=== PATIENT | male | born 1990 | race American Indian/Alaskan Native ===

== ENCOUNTER 2017-09-08 16:15 | Emergency (ER) | payer MEDICAID ==
[2017-09-08 16:44] VITALS: PULSE 90; RESP 18; TEMP 97.5; O2SAT 98
[2017-09-08] MEDS ORDERED: Albuterol 0.083% Inhal Sol (2.5 mg/3 mL) UD INH STA (17:21)
[2017-09-08] MEDS ORDERED: Albuterol 0.083% Inhal Sol (2.5 mg/3 mL) UD ONE (17:34)
--- NOTE | 2017-09-08 18:48 | ED PDOC ---
HPI: General Adult Time Seen by Provider: 09/08/17 16:39 Chief Complaint (Nursing): Abdominal Pain History Per: Patient Additional Complaint(s): Pt. states for the past 2 days he's had cough, congestion, and diarrhea. Also reports non-radiating, intermittent epigastric crampy abdominal pain present only when trying to have BM. Of note, pt.'s 2 y/o daughter also has same symptoms. Denies fever, hematemesis, vomiting, chest pain, SOB, melena, hematochezia, BRBPR. Past Medical History Reviewed: Historical Data, Nursing Documentation, Vital Signs Vital Signs: Last Vital Signs Temp 97.5 F L 09/08/17 16:40 Pulse 90 09/08/17 16:40 Resp 18 09/08/17 16:40 BP 153/79 H 09/08/17 18:48 Pulse Ox 98 09/08/17 19:40 - Medical History PMH: Asthma, Bronchitis - Family History Family History: States: No Known Family Hx - Home Medications Home Medications: Ambulatory Orders Medication Instructions Recorded Amoxicillin [Amoxil] 500 mg PO TID #30 cap 08/21/14 Famotidine [Pepcid] 20 mg PO Q12H #20 tab 08/21/14 Albuterol HFA [Ventolin HFA 90 1 - 2 puff IH Q4H PRN #1 bottle 02/18/16 mcg/actuation (8 g)] Azithromycin [Zithromax] 250 mg PO DAILY #6 tablet 02/18/16 predniSONE [Prednisone] 40 mg PO DAILY #8 tab 02/18/16 Albuterol Sulfate [Proair Hfa] 1 - 2 puff IH Q6 #1 inh 06/02/16 Dextromethorphan HBr [Cough 15 mg PO BID #20 capsule 06/02/16 Control] predniSONE [predniSONE Tab] 20 mg PO DAILY #8 tab 06/02/16 Albuterol 0.083% [Albuterol 0.083% 2.5 mg IH QID PRN #20 10/11/16 Inhal Caridad (2.5 mg/3 ml) UD] Albuterol HFA [Ventolin HFA 90 1 puff IH BID PRN #2 unit 10/11/16 mcg/actuation (8 g)] Albuterol HFA [Ventolin HFA 90 2 puff IH [id number] PRN #90 puff 09/08/ mcg/actuation (8 g)] - Allergies Allergies/Adverse Reactions: Allergies Allergy/AdvReac Type Severity Reaction Status Date / Time No Known Allergies Allergy Verified 06/02/16 11:15 Review of Systems ROS Statement: Except As Marked, All Systems Reviewed And Found Negative Respiratory: Positive for: Cough Gastrointestinal: Positive for: Abdominal Pain, Diarrhea Physical Exam - Reviewed Nursing Documentation Reviewed: Yes Vital Signs Reviewed: Yes - Physical Exam Appears: Positive for: Well, Non-toxic, No Acute Distress Head Exam: Positive for: ATRAUMATIC, NORMAL INSPECTION, NORMOCEPHALIC Skin: Positive for: Normal Color, Warm. Negative for: Rash Eye Exam: Positive for: EOMI, Normal appearance, PERRL ENT: Positive for: Normal ENT Inspection Neck: Positive for: Normal, Painless ROM Cardiovascular/Chest: Positive for: Regular Rate, Rhythm Respiratory: Positive for: Wheezing (minimal b/l expiratory wheezing). Negative for: Accessory Muscle Use, Crackles, Rales, Rhonchi, Respiratory Distress Gastrointestinal/Abdominal: Positive for: Normal Exam, Soft. Negative for: Tenderness Back: Positive for: Normal Inspection Extremity: Positive for: Normal ROM Neurologic/Psych: Positive for: Alert, Oriented. Negative for: Aphasia, Facial Droop - ECG O2 Sat by Pulse Oximetry: 98 - Radiology X-Ray: Interpreted by Me (CXR) X-Ray Interpretation: No Acute Disease - Progress ED Course And Treament: Repeat temp: 153/79. On re-evaluation, pt. reports good relief of wheezing. Lungs clear b/l. Rapid flu: negative. Disposition - Clinical Impression Clinical Impression: Viral syndrome - Patient ED Disposition Is Patient to be Admitted: No - Disposition Referrals: [facility] [Outside] Disposition: Routine/Home Disposition Time: 19:38 Condition: STABLE Prescriptions: Albuterol HFA [Ventolin HFA 90 mcg/actuation (8 g)] 2 puff IH [id number] PRN #90 puff PRN Reason: Cough Instructions: Viral Syndrome (ED), Bronchospasm (ED) Forms: FRESS (Jamaican) Print Language: BRUNEIAN
[2017-09-08 18:49] VITALS: BP 153/79
--- NOTE | 2017-09-08 18:55 | RAD ---
HISTORY: Cough. COMPARISON: 06/02/2016 TECHNIQUE: Chest PA and lateral FINDINGS: LUNGS: No active pulmonary disease. PLEURA: No significant pleural effusion identified. No pneumothorax apparent. CARDIOVASCULAR: Normal. OSSEOUS STRUCTURES: No significant abnormalities. VISUALIZED UPPER ABDOMEN: Normal. OTHER FINDINGS: None. IMPRESSION: No active disease. No significant interval change compared to the prior examination(s).
== END 2017-09-08 20:00 | disposition home or self-care (01) ==
LOC: H.ER 16:15
DX: B34.9 Viral infection, unspecified (principal); J45.909 Unspecified asthma, uncomplicated

== ENCOUNTER 2017-10-14 12:12 | Emergency (ER) | payer MEDICAID ==
[2017-10-14 12:16] VITALS: RESP 20; TEMP 98; O2SAT 98
[2017-10-14 13:08] VITALS: BP 150/98; PULSE 90
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
== END 2017-10-14 14:05 | disposition home or self-care (01) ==
LOC: H.ER 12:12
DX: S50.312A Abrasion of left elbow, initial encounter (principal); Y04.0XXA Assault by unarmed brawl or fight, initial encounter; Y92.89 Other specified places as the place of occurrence of the external cause; J45.909 Unspecified asthma, uncomplicated